=== PATIENT | female | born 1995 | race American Indian/Alaskan Native ===

== ENCOUNTER 2018-06-01 17:10 | Outpatient (CLI) | payer OTHER ==
[2018-06-01 19:12] LABS: Bacteria,Urine 2+ /HPF (Negative); Bilirubin,Urine NEG (Negative); Blood,Urine NEG (Negative); Color,Urine Amber (Yellow); Hyaline Casts,Urine 3 /LPF; Mucus,Urine 1+ /HPF
[2018-06-01] MEDS ORDERED: LACTATED RINGERS 1,000 ML IV ONE (19:23)
[2018-06-01] MEDS ORDERED: LACTATED RINGERS 1,000 ML ONE (19:24)
[2018-06-01] MEDS ORDERED: ANCEF/NS 1 GM/50 ML 1 GM/50 ML BAG IV ONE (22:00)
[2018-06-01] MEDS ORDERED: ceFAZolin 1 GM in NACL 0.9% 100 ML IV ONE (22:00)
[2018-06-01 23:14] LABS: Amphetamine Screen,Urine PRESUMPTIVE NEGATIVE; Benzodiazepines Screen,Urine PRESUMPTIVE NEGATIVE; Cannabinoid Screen,Urine PRESUMPTIVE NEGATIVE; Cocaine Screen,Urine PRESUMPTIVE NEGATIVE; Methadone Screen,Urine PRESUMPTIVE NEGATIVE; Opiate Screen,Urine PRESUMPTIVE NEGATIVE
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
[2018-06-01 23:28] VITALS: BP 109/66
== END 2018-06-02 01:36 | disposition home or self-care (01) ==
LOC: TRG 17:10
PROVIDERS: ATTEND Obstetrics & Gynecology
DX: O47.03 False labor before 37 completed weeks of gestation, third trimester (principal); Z3A.34 34 weeks gestation of pregnancy; Z87.891 Personal history of nicotine dependence
CPT/HCPCS: 59025; 76816; 76819; 80307; 81001; 85460; 96360; 96365; J0690; J7120

== ENCOUNTER 2018-07-05 18:40 | Inpatient (IN) | payer OTHER ==
[2018-07-05] MEDS ORDERED: BRETHINE SUB-Q PRN (20:43)
[2018-07-05] MEDS ORDERED: MINERAL OIL PO PRN (20:43)
[2018-07-05] MEDS ORDERED: XYLOCAINE 2% INFILTRATI ONE (20:43)
[2018-07-05] MEDS ORDERED: BRETHINE IVP PRN (20:43)
[2018-07-05] MEDS ORDERED: AMPICILLIN/NS 2 GM/100 ML 2 GM/100 ML BAG IV ONE (20:43)
[2018-07-05] MEDS ORDERED: SUBLIMAZE IV PRN (20:43)
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
[2018-07-05] MEDS ORDERED: PITOCin/NS 20 UNIT/1000ML DRIP 20 UNITS/1,000 ML BAG IV SCH (21:00)
[2018-07-05] MEDS ORDERED: PITOCin/NS 30 UNIT/500ML 30 UNITS/500 ML BAG IV SCH (21:00)
[2018-07-05] MEDS ORDERED: LACTATED RINGERS 1,000 ML IV SCH (21:00)
[2018-07-05 21:30] LABS: Basophils # (Auto) 0.1 K/mm3 (0.0-0.1); Basophils % (Auto) 0.9 % (0.0-1.8); Hematocrit 29.3 % (30.3-42.9); Hemoglobin 8.8 gm/dl (10.1-14.3); Lymphocytes # (Auto) 3.5 K/mm3 (1.2-5.4); Lymphocytes % (Auto) 23.6 % (13.4-35.0); Mean Corpuscular HGB Conc 30 % (30-34); Mean Corpuscular Volume 73 fl (79-97); Monocytes # (Auto) 0.8 K/mm3 (0.0-0.8); Monocytes % (Auto) 5.8 % (0.0-7.3); Platelet Count 315 K/mm3 (140-440); Red Blood Count 4.04 M/mm3 (3.65-5.03); Red Cell Distribution Width 17.5 % (13.2-15.2)
[2018-07-05 21:45] LABS: Amphetamine Screen,Urine PRESUMPTIVE NEGATIVE; Benzodiazepines Screen,Urine PRESUMPTIVE NEGATIVE; Cannabinoid Screen,Urine PRESUMPTIVE NEGATIVE; Cocaine Screen,Urine PRESUMPTIVE NEGATIVE; Methadone Screen,Urine PRESUMPTIVE NEGATIVE; Opiate Screen,Urine PRESUMPTIVE NEGATIVE
[2018-07-05 22:04] LABS: Hepatitis C Virus Antibody Non-Reactive (NonReactive)
[2018-07-05] MEDS ORDERED: AMBIEN PO PRN (22:12)
[2018-07-06] MEDS: AMPICILLIN/NS 1 GM/50 ML 1 GM/50 ML BAG IV SCH ×3 (01:14→10:20)
[2018-07-06] MEDS ORDERED: NARCAN 2 MG/2 ML IV PRN (07:49)
--- NOTE | 2018-07-06 07:51 | Anesthesia Consultation ---
Anesthesia Consult and Med Hx - Airway Anesthetic Teeth Evaluation: Good ROM Head & Neck: Adequate Mental/Hyoid Distance: Adequate Mallampati Class: Class I Intubation Access Assessment: Good - Pulmonary Exam CTA: Yes - Cardiac Exam Cardiac Exam: RRR - Pre-Operative Health Status ASA Pre-Surgery Classification: ASA2 Proposed Anesthetic Plan: Epidural - Pulmonary Hx Smoking: No Hx Asthma: No - Cardiovascular System Hx Hypertension: No - Central Nervous System Hx Seizures: No Hx Psychiatric Problems: No - Endocrine Hx Renal Disease: No Hx Hypothyroidism: No Hx Hyperthyroidism: No - Hematic Hx Anemia: Yes Hx Sickle Cell Disease: No - Other Systems Hx Alcohol Use: No
--- NOTE | 2018-07-06 07:51 | Anesthesia Day of Surgery ---
Anesthesia Day of Surgery - Day of Surgery Patient Examined: Yes Patient H&P Reviewed: Yes Patient is NPO: Yes Beta Blockers: No Cardiac Clearance: No Pulmonary Clearance: No Gavin's Test: N/A
[2018-07-06] MEDS ORDERED: MARCAINE 0.25% INFILTRATI ONE (07:55)
[2018-07-06] MEDS ORDERED: LIDOCAINE 1.5%/EPI 1:200,000 INFILTRATI ONE (07:55)
[2018-07-06] MEDS ORDERED: fentaNYL-BUPIV 2 MCG/ML-0.125% 200 MCG/100 ML BAG EPIDURAL SCH (08:00)
--- NOTE | 2018-07-06 08:34 | Event Note ---
Date: 07/06/18 O: VE /-1, Ellis, lt meconium, CAT I tracing, UC's q 3 min. Pit at 6mu A: Pitocin augmentation of labor at 39 weeks P; Expect
[2018-07-06] MEDS ORDERED: XYLOCAINE 2%/ EPI 1:200,000 INFILTRATI ONE (09:32)
[2018-07-06] MEDS ORDERED: LANSINOH TP PRN (12:05)
[2018-07-06] MEDS ORDERED: ZOFRAN IV PRN (12:05)
[2018-07-06] MEDS ORDERED: MILK OF MAGNESIA PO PRN (12:05)
[2018-07-06] MEDS ORDERED: PHENERGAN PR PRN (12:05)
[2018-07-06] MEDS ORDERED: PHENERGAN PO PRN (12:05)
[2018-07-06] MEDS ORDERED: DULCOLAX PR PRN (12:05)
[2018-07-06] MEDS ORDERED: TUCKS PAD TP PRN (12:05)
[2018-07-06] MEDS ORDERED: BENADRYL PO PRN (12:05)
[2018-07-06] MEDS ORDERED: TYLENOL PO PRN (12:05)
--- NOTE | 2018-07-06 12:18 | Procedure Note ---
OB Delivery Note - Delivery Date of Delivery: 07/06/18 (1134) Surgeon: CARMELO MARIE (YOANDY) Deckhand Oyster Dredge: ISAIAS VAZQUEZ (YOANDY) Estimated blood loss: 300cc - Vaginal Delivery presentation: vertex Delivery position: OA Intrapartum events: meconium (light) Delivery augmentation: pitocin Delivery monitor: external FHT, external uterine Route of delivery: (1134) Delivery placenta: spontaneous (1140) Delivery cord: 3 umbilical vessels Episiotomy: none Delivery laceration: 2nd degree, vaginal side wall (left) Delivery repair: vicryl (3.0) Anesthesia: epidural Delivery comments: Arrived to room to find pt complete and requesting to push. Delivered viable male without difficulty. Shoulders delivered easily. Apgars 8/9. placed on maternal chest, cord clamped by CNM and handed off to waiting NICU team. Placenta delivered spontaneously, oh, discarded per hospital policy. Second degree laceration on left vaginal wall, repaired. Mother and baby bonding well. - A at 1 minute: 8 at 5 minutes: 9 Infant Gender: Male (3392 gms (7lbs, 7oz))
[2018-07-06] MEDS ORDERED: SODIUM CHLORIDE FLUSH SYRINGE 10 ML IV SCH (13:00)
[2018-07-06] MEDS: NORCO 5/325 PO PRN ×2 (13:17→20:15)
--- NOTE | 2018-07-06 19:41 | Event Note ---
S-Chart reviewed. No care labs reviewed. O-H/H 8.01/24 A PPD#1 Anemia of chronic disease, iron deficiency P- Start iron supplements and discharge home on ferrous sulfate.
[2018-07-06] MEDS ORDERED: FEOSOL PO ONE (22:00)
[2018-07-06] MEDS: IBUPROFEN PO SCH (23:04)
--- NOTE | 2018-07-07 09:21 | Progress Note ---
Assessment and Plan A: day 1 S/P spontaneous vaginal delivery. Anemia related to and acute blood loss. P: Supplement with iron. Anticipate discharge tomorrow. Subjective - Subjective Date of service: 07/07/18 Principal diagnosis: day 1 S/P Interval history: day 1 S/P spontaneous vaginal delivery. Doing well. . Patient reports small amount of lochia. Patient is voiding without difficulty, ambulating well, passing gas, tolerating a regular diet without nausea or vomiting. Patient denies headache, cough, shortness of breath, chest pain, abdominal pain, leg pain, or heavy vaginal bleeding. Patient reports: appetite normal, voiding normally, pain well controlled, flatus, ambulating normally, no dizzy ambulation, no nauseated [place]: doing well Objective - Vital Signs Latest vital signs: Vital Signs Temp Pulse Resp BP BP Pulse Ox 07/07/18 07:54 97.6 F 84 18 104/55 99 07/06/18 16:06 98.1 F 18 111/62 07/06/18 15:50 97 H 07/06/18 14:45 99.0 F 82 117/53 07/06/18 13:29 77 122/64 07/06/18 13:14 81 125/62 07/06/18 12:59 90 117/56 07/06/18 12:44 66 128/72 07/06/18 12:30 98.6 F 76 18 121/68 07/06/18 11:14 98 H 128/67 07/06/18 11:01 106 H 125/71 07/06/18 10:45 100 H 124/77 07/06/18 10:38 94 H 99 07/06/18 10:33 102 H 100 07/06/18 10:30 96 H 123/78 07/06/18 10:28 98 H 100 07/06/18 10:23 92 H 100 07/06/18 10:18 89 99 07/06/18 10:14 88 125/75 07/06/18 10:13 88 100 07/06/18 10:08 84 100 07/06/18 10:03 85 100 07/06/18 10:01 90 125/73 07/06/18 09:58 92 H 100 07/06/18 09:53 90 100 07/06/18 09:48 106 H 100 07/06/18 09:46 90 131/76 07/06/18 09:43 99 H 100 07/06/18 09:38 94 H 100 07/06/18 09:33 87 100 07/06/18 09:28 108 H 99 07/06/18 09:23 95 H 100 Intake and Output 07/06/18 07/07/18 07/07/18 23:59 07:59 15:59 Intake Total 480 240 Output Total 3 3 Balance 477 237 Intake: Oral 360 240 Intake, Free Water 120 Output: Urine 3 3 Void 3 3 Other: Total, Intake Amount 360 240 Total, Output Amount 2 3 # Voids Void 400 300 - Exam Breasts: Present: normal Abdomen: Present: normal appearance, soft. Absent: distention, tenderness, guarding, rigidity Uterus: Present: normal, firm, fundal height below umbilicus. Absent: bogginess, tenderness Extremities: Present: normal. Absent: tenderness, edema
[2018-07-07] MEDS: FEOSOL PO SCH ×2 (10:23→21:01)
[2018-07-07] MEDS: PRENATAL VITAMIN PO SCH (10:23)
[2018-07-07] MEDS: NORCO 5/325 PO PRN ×2 (12:03→21:01)
[2018-07-07] MEDS: IBUPROFEN PO SCH (19:47)
[2018-07-08] MEDS: IBUPROFEN PO SCH ×2 (06:11→06:12)
[2018-07-08] MEDS: NORCO 5/325 PO PRN (08:40)
[2018-07-08] MEDS: FEOSOL PO SCH (11:45)
[2018-07-08] MEDS: PRENATAL VITAMIN PO SCH (11:45)
--- NOTE | 2018-07-08 14:54 | Progress Note ---
Assessment and Plan A: day 2 S/P spontaneous vaginal delivery. Anemia due to and acute blood loss. P: Discharge patient home today. discharge instructions and warning signs discussed with patient. Advised patient to avoid intercourse, lifting and heavy housework, driving, tub baths (patient may take showers). The following Rx were called to [facility] pharmacy on [address] and patient was instructed to pick them up at hospital discharge: Vitamin, #30, 1 po daily, 5 RF; Ferrous Sulfate 325 mg, #60, 1 po BID, 1 RF. Advised patient to call [facility] tomorrow and schedule and appointment for a follow up visit in 6 weeks. Patient voiced understanding of all instructions. Subjective - Subjective Date of service: 07/08/18 Principal diagnosis: day 2 S/P Interval history: day 2 S/P spontaneous vaginal delivery. Doing well; patient desires discharge today. . Patient reports small amount of lochia. Patient is voiding without difficulty, ambulating well, passing gas, tolerating a regular diet without nausea or vomiting. Patient denies headache, cough, shortness of breath, chest pain, abdominal pain, leg pain, or heavy vaginal bleeding. Patient reports: appetite normal, voiding normally, pain well controlled, flatus, ambulating normally, no dizzy ambulation, no nauseated [place]: doing well Objective - Vital Signs Latest vital signs: Vital Signs Temp Pulse Resp BP BP Pulse Ox 07/08/18 14:42 68 18 108/62 07/08/18 07:32 98.2 F 72 16 93/48 100 07/08/18 00:00 98.0 F 87 18 103/50 07/07/18 17:02 98.7 F 83 18 113/59 98 Intake and Output 07/07/18 07/08/18 07/08/18 23:59 07:59 15:59 Intake Total 240 Balance 240 Intake: Oral 240 Other: Total, Intake Amount 240 # Voids Void 1 1 - Exam Cardiovascular: Present: Regular rate, Normal S1, Normal S2 Lungs: Present: Clear to auscultation Abdomen: Present: normal appearance, soft, normal bowel sounds. Absent: distention, tenderness, guarding, rigidity Uterus: Present: normal, firm, fundal height below umbilicus. Absent: bogginess, tenderness Extremities: Present: normal. Absent: tenderness, edema
--- NOTE | 2018-07-08 14:57 | Discharge Summary ---
Providers - Providers Date of Admission: 07/05/18 21:10 Date of discharge: 07/08/18 Attending physician: ANA CATALAN MD None Primary care physician: [employer] Hospitalization Reason for admission: active labor Delivery: Episiotomy: none Laceration: 2nd degree Other procedures: none complications: none [place] baby: male Pertinent studies: Labs Hospital course: Normal hospital course. Condition at discharge: Good Disposition: DC-01 TO HOME OR SELFCARE - Discharge Diagnoses (1) Term delivered Status: Acute (2) Anemia due to blood loss, acute Status: Acute Plan - Discharge Medications Prescriptions: Ferrous Sulfate [Feosol 325 MG tab] 325 mg PO BID 30 Days #60 tablet Ferrous Sulfate [Feosol 325 MG tab] 325 mg PO BID 30 Days #60 tablet - Provider Discharge Summary Activity: routine, no sex for 6 weeks, no heavy lifting 4 weeks, no strenuous exercise Diet: routine Instructions: routine Additional instructions: Call your doctor immediately for: * Fever > 100.5 * Heavy vaginal bleeding ( >1 pad per hour) * Severe persistent headache * Shortness of breath * Reddened, hot, painful area to leg or breast - Follow up plan Follow up: PRIMARY CAREMD [Primary Care Provider] - 6 Weeks
[2018-07-08 16:26] VITALS: BP 91/45
== END 2018-07-08 17:10 | disposition home or self-care (01) | DRG 775 ==
LOC: TRG 18:40 → LD 21:10 → OB 07-06 14:10
PROVIDERS: ADMIT Obstetrics & Gynecology; ATTEND Obstetrics & Gynecology
PROC: 0KQM0ZZ Repair Perineum Muscle, Open Approach (ICD-10-PCS; principal; 2018-07-06)
PROC: 10E0XZZ Delivery of Products of Conception, External Approach (ICD-10-PCS; 2018-07-06)
PROC: 3E0R3BZ Introduction of Anesthetic Agent into Spinal Canal, Percutaneous Approach (ICD-10-PCS; 2018-07-06)
PROC: 00HU33Z Insertion of Infusion Device into Spinal Canal, Percutaneous Approach (ICD-10-PCS; 2018-07-06)
DX: O77.0 Labor and delivery complicated by meconium in amniotic fluid (principal); O99.02 Anemia complicating childbirth; D62 Acute posthemorrhagic anemia; O70.1 Second degree perineal laceration during delivery; Z37.0 Single live birth; Z3A.39 39 weeks gestation of pregnancy; Z82.49 Family history of ischemic heart disease and other diseases of the circulatory system; Z83.3 Family history of diabetes mellitus
CPT/HCPCS: 36415; 80307; 85025; 86592; 86706; 86762; 86803; 86850; 86900; 86901; 87806; G0378; J0290; J2590; J7120

== ENCOUNTER 2019-05-06 11:23 | Emergency (ER) | payer OTHER ==
--- NOTE | 2019-05-06 12:07 | Emergency Department Report ---
Blank Doc - Documentation Documentation: 23-year-old female that presents with left axilla abscess x1 week. This initial assessment/diagnostic orders/clinical plan/treatment(s) is/are subject to change based on patient's health status, clinical progression and re- assessment by fellow clinical providers in the ED. Further treatment and workup at subsequent clinical providers discretion. Patient/guardians urged not to elope from the ED as their condition may be serious if not clinically assessed and managed. Initial orders include: 1- Patient sent to [facility] for further evaluation and treatment
[2019-05-06 12:08] VITALS: BP 127/67
== END 2019-05-06 13:58 | disposition left against medical advice (07) ==
LOC: ED 11:23
DX: R22.9 Localized swelling, mass and lump, unspecified (principal); Z53.21 Procedure and treatment not carried out due to patient leaving prior to being seen by health care provider

== ENCOUNTER 2019-05-12 09:54 | Emergency (ER) | payer OTHER ==
[2019-05-12 10:32] VITALS: BP 116/74
--- NOTE | 2019-05-12 13:37 | Emergency Department Report ---
Abscess Boil HPI - HPI Chief Complaint: Skin/Abscess/Foreign Body Stated Complaint: NODULE LT AXILLA/PAINFUL Time Seen by Provider: 05/12/19 12:00 Duration: >1 Week Location: Upper Extremity Severity: Mild History: Yes Pain, No Fever, No Purulent Drainage, No Numbness, No Foreign Body, No Previous History, No Insect Bite HPI: This is a 24-year-old female nontoxic, well nourished in appearance, no acute signs of distress presents to the ED with c/o of redness, swelling, and pain to left axilla x2 weeks. Patient denies any pus or drainage. Patient denies any fever, chills, nausea, vomiting, chest pain, shortness of breath, headache or stiff neck. Patient stated allergies to Ibuprofen. Home Medications: Home Medications Medication Instructions Recorded Confirmed Last Taken Pnv 15/Iron Fum,Ps/Folic Acid 1 tab PO DAILY 06/01/18 07/06/18 Unknown Previous Rx's Medication Instructions Recorded Last Taken Type Ferrous Sulfate [Feosol 325 MG tab] 325 mg PO BID 30 Days #60 tablet 07/06/18 Unknown Rx Ferrous Sulfate [Feosol 325 MG tab] 325 mg PO BID 30 Days #60 tablet 07/06/18 Unknown Rx Acetaminophen/Codeine [Tylenol 1 tab PO Q6H PRN #12 tab 05/12/19 Unknown Rx /Codeine # 3 tab] Sulfamethoxazole/Trimethoprim 1 each PO BID #14 tablet 05/12/19 Unknown Rx [Bactrim DS TAB] Allergies/Adverse Reactions: Allergies Allergy/AdvReac Type Severity Reaction Status Date / Time ibuprofen Allergy Nausea Verified 05/12/19 09:56 ED Review of Systems ROS: Stated complaint: NODULE LT AXILLA/PAINFUL Other details as noted in HPI Constitutional: denies: chills, fever Eyes: denies: eye pain, eye discharge, vision change ENT: denies: ear pain, throat pain Respiratory: denies: cough, shortness of breath, wheezing Cardiovascular: denies: chest pain, palpitations Endocrine: no symptoms reported Gastrointestinal: denies: abdominal pain, nausea, diarrhea Genitourinary: denies: urgency, dysuria, discharge Musculoskeletal: denies: back pain, joint swelling, arthralgia Skin: denies: rash, lesions Neurological: denies: headache, weakness, paresthesias Psychiatric: denies: anxiety, depression Hematological/Lymphatic: denies: easy bleeding, easy bruising ED Past Medical Hx - Past Medical History Previous Medical History?: No Hx Hypertension: No Hx Diabetes: No Hx Deep Vein Thrombosis: No Hx Renal Disease: No Hx Sickle Cell Disease: No Hx Seizures: No Hx Asthma: No Hx HIV: No - Surgical History Past Surgical History?: No - Social History Smoking Status: Current Every Day Smoker Substance Use Type: None - Medications Home Medications: Home Medications Medication Instructions Recorded Confirmed Last Taken Type Pnv 15/Iron Fum,Ps/Folic Acid 1 tab PO DAILY 06/01/18 07/06/18 Unknown History Ferrous Sulfate [Feosol 325 MG tab] 325 mg PO BID 30 Days #60 tablet 07/06/18 Unknown Rx Ferrous Sulfate [Feosol 325 MG tab] 325 mg PO BID 30 Days #60 tablet 07/06/18 Unknown Rx Acetaminophen/Codeine [Tylenol 1 tab PO Q6H PRN #12 tab 05/12/19 Unknown Rx /Codeine # 3 tab] Sulfamethoxazole/Trimethoprim 1 each PO BID #14 tablet 05/12/19 Unknown Rx [Bactrim DS TAB] ED Abscess Boil Physical Exam - Exam General: Vital signs noted. No distress. Alert and acting appropriately. Size: 3 cm Exam: Yes Tenderness, Yes Fluctuance, Yes Normal Neurologic Exam, Yes Normal Circulation, No Surrounding Cellulites/Erythema, No Lymphangitis, No Crepitation, No Heart Murmur I & D Note - I & D Note I & D Note: Under sterile field, I used Betadine to cleanse the area. I then used 2% lidocaine plain with 25-gauge 5/8 needle to inject area for anesthetic purposes. Total volume injected 3 mL. I then used an 11 blade to make a 1 cm incision. About 2 mL's of purulent drainage has been noted. I then used a hemostat to break the abscess formation. I then used sterile 0.9% normal saline flush to flush the wound with total volume of 40 mL used. I then put a 1/4 iodoform packing to the incision. A sterile 4 x 4 with tape has been applied as dressing. Bleeding is under control. Patient tolerated the procedure well with no signs of distress noted. ED Course Vital Signs 05/12/19 10:20 Temperature 98.8 F Pulse Rate 88 Respiratory 18 Rate Blood Pressure 116/74 [Right] O2 Sat by Pulse 100 Oximetry - Reevaluation(s) Reevaluation #1: 05/12/19 13:35 Patient is speaking in full sentences with no signs of distress noted. Critical care attestation.: If time is entered above; I have spent that time in minutes in the direct care of this critically ill patient, excluding procedure time. ED Medical Decision Making - Medical Decision Making This is a 24-year-old female that presents with left axillary abscess. Patient is stable and was examined by me. This is incision and drainage and has been performed and patient tolerated well. A sterile dressing has been applied. Patient was educated on proper wound care. Patient is discharged with Bactrim and Tylenol with codeine and was instructed not to operate any machinery while taking Tylenol with codeine due to drowsiness. Patient was instructed to return in 2 days for packing removal. Patient was instructed to refer to Follow-up with a primary care doctor in 3-5 days or if symptoms worsen and continue return to emergency room as soon as possible. At time of discharge, the patient does not seem toxic or ill in appearance. No acute signs of distress noted. Patient agrees to discharge treatment plan of care. No further questions noted by the patient. ED Disposition Clinical Impression: Encounter for incision and drainage procedure, Abscess of left axilla Disposition: DC-01 TO HOME OR SELFCARE Is pt being admited?: No Does the pt Need Aspirin: No Condition: Stable Instructions: Abscess (ED), Abscess Incision and Drainage (ED), Acetaminophen/Codeine (By mouth) Additional Instructions: Follow-up with a primary care doctor in 3-5 days or if symptoms worsen and continue return to emergency room as soon as possible. Do not operate any machinery while taking Tylenol with codeine as this may cause drowsiness. Return in 2 days for packing removal. Prescriptions: Sulfamethoxazole/Trimethoprim [Bactrim DS TAB] 1 each PO BID #14 tablet Acetaminophen/Codeine [Tylenol /Codeine # 3 tab] 1 tab PO Q6H PRN #12 tab PRN Reason: pain Referrals: PRIMARY MD CARMELINA [Primary Care Provider] - 3-5 Days TERENCE BEVERLY MD [Staff Physician] - 3-5 Days [facility] [Outside] - 3-5 Days Forms: Work/School Release Form(ED)
[2019-05-12] MEDS ORDERED: HYDROcodone/ACETAMINOPHEN 10-325MG TAB PO ONE (15:25)
== END 2019-05-12 15:33 | disposition home or self-care (01) ==
LOC: ED 09:54
DX: L02.412 Cutaneous abscess of left axilla (principal); F17.200 Nicotine dependence, unspecified, uncomplicated; Z79.899 Other long term (current) drug therapy; Z88.8 Allergy status to other drugs, medicaments and biological substances

== ENCOUNTER 2020-05-24 20:05 | Emergency (ER) | payer SELFPAY ==
[2020-05-24 20:20] VITALS: BP 130/73
--- NOTE | 2020-05-24 21:00 | Event Note ---
ED Screening Note Date of service: 05/24/20 Time: 20:55 ED Screening Note: 25-year-old -[place] female presents to the emergency room for 3-day history of pelvic cramping and noticed blood in her urine 2 days ago. She reports her last menstrual period was 03/11/2020. She is 3 para 2. She reports she has not gone through any pads but just spotting on the tissue. Patient denies any fever chills no vomiting just nausea.Patient states that she has not followed up with care as she does not have insurance. This initial assessment/diagnostic orders/clinical plan/treatment(s) is/are subject to change based on patients health status, clinical progression and re- assessment by fellow clinical providers in the ED. Further treatment and workup at subsequent clinical providers discretion. Patient/guardian urged not to elope from the ED as their condition may be serious if not clinically assessed and managed. Initial orders include:
[2020-05-24 21:52] LABS: Basophils # (Auto) 0.1 K/mm3 (0.0-0.1); Basophils % (Auto) 0.4 % (0.0-1.8); Eosinophils % (Auto) 0.1 % (0.0-4.3); Lymphocytes # (Auto) 2.6 K/mm3 (1.2-5.4); Lymphocytes % (Auto) 22.2 % (13.4-35.0); Mean Corpuscular HGB Conc 30 % (30-34); Mean Corpuscular Volume 71 fl (79-97); Monocytes # (Auto) 0.8 K/mm3 (0.0-0.8); Monocytes % (Auto) 6.5 % (0.0-7.3); Platelet Count 267 K/mm3 (140-440); Red Blood Count 4.35 M/mm3 (3.65-5.03)
[2020-05-24 21:57] LABS: Hematocrit 30.9 % (30.3-42.9); Hemoglobin 9.2 gm/dl (10.1-14.3); Red Cell Distribution Width 21.5 % (13.2-15.2)
[2020-05-24 22:01] LABS: Alanine Aminotransferase 7 units/L (7-56); Albumin 4.3 g/dL (3.9-5); Blood Urea Nitrogen 8 mg/dL (7-17); Calcium 9.5 mg/dL (8.4-10.2); Hemolysis Index 4
[2020-05-24 22:02] LABS: BUN/Creatinine Ratio 20
== END 2020-05-24 21:00 | disposition left against medical advice (07) ==
LOC: ED 20:05
DX: R10.9 Unspecified abdominal pain (principal); Z53.21 Procedure and treatment not carried out due to patient leaving prior to being seen by health care provider
CPT/HCPCS: 36415; 80053; 84702; 85025

== ENCOUNTER 2020-12-16 16:08 | Outpatient (CLI) | payer OTHER ==
[2020-12-16 16:52] VITALS: BP 122/73
== END 2020-12-16 17:48 | disposition home or self-care (01) ==
LOC: TRG 16:08 → APU 16:14 → TRG 17:48
PROVIDERS: ATTEND Obstetrics & Gynecology
DX: O36.8130 Decreased fetal movements, third trimester, not applicable or unspecified (principal); Z3A.40 40 weeks gestation of pregnancy
CPT/HCPCS: 59025

== ENCOUNTER 2020-12-20 00:59 | Inpatient (IN) | payer OTHER ==
[2020-12-20 01:50] LABS: Bilirubin,Urine NEG (Negative); Blood,Urine NEG (Negative); Color,Urine Straw (Yellow); Protein,Urine <15 mg/dL mg/dL (Negative); Urobilinogen,Urine < 2.0 mg/dL (<2.0)
[2020-12-20] MEDS ORDERED: LACTATED RINGERS 1,000 ML IV ONE (01:55)
[2020-12-20 01:56] LABS: Amphetamine Screen,Urine Negative; Benzodiazepines Screen,Urine Negative; Cannabinoid Screen,Urine Negative; Cocaine Screen,Urine Negative; Methadone Screen,Urine Negative; Opiate Screen,Urine Negative
[2020-12-20] MEDS ORDERED: ACETAMINOPHEN 325 MG TAB PO PRN ×2 (04:42→18:45)
[2020-12-20] MEDS ORDERED: ePHEDrine SULFATE 50 MG/1 ML INJ IV PRN ×2 (04:42→08:30)
[2020-12-20] MEDS ORDERED: fentaNYL 100 MCG/2 ML INJ IV PRN (04:42)
[2020-12-20] MEDS ORDERED: OXYTOCIN 10 UNIT/1 ML INJ IM PRN (04:42)
[2020-12-20] MEDS ORDERED: LIDOCAINE (2%) 20 MG/1 ML VIAL 20 ML MDV INFILTRATI ONE (04:42)
[2020-12-20] MEDS ORDERED: METHYLERGONOVINE MALEATE 0.2 MG/ML VIAL IM PRN (04:42)
[2020-12-20] MEDS ORDERED: AMPICILLIN/NS 2 GM/100 ML 2 GM/100 ML BAG IV ONE (04:42)
[2020-12-20] MEDS ORDERED: MINERAL OIL 30 ML ORAL LIQD PO PRN (04:42)
[2020-12-20] MEDS ORDERED: TERBUTALINE 1 MG/1 ML INJ SUB-Q PRN (04:42)
[2020-12-20] MEDS ORDERED: ONDANSETRON 4 MG/2 ML INJ IV PRN ×2 (04:42→18:45)
[2020-12-20] MEDS ORDERED: miSOPROStol 200 MCG TAB PR PRN (04:42)
[2020-12-20] MEDS ORDERED: BUTORPHANOL 2 MG/1 ML INJ IV PRN (04:42)
[2020-12-20] MEDS ORDERED: OXYTOCIN DRIP 30 UNITS/500 ML BAG IV SCH ×3 (05:00→19:00)
[2020-12-20] MEDS: LACTATED RINGERS 1,000 ML IV SCH ×3 (05:47→09:39)
[2020-12-20 06:12] LABS: Hemoglobin 12.2 gm/dl (10.1-14.3); Mean Corpuscular HGB Conc 33 % (30-34); Mean Corpuscular Volume 87 fl (79-97); Platelet Count 241 K/mm3 (140-440); Red Blood Count 4.26 M/mm3 (3.65-5.03)
--- NOTE | 2020-12-20 06:58 | Ultrasound Report ---
ULTRASOUND OBSTETRIC LIMITED ULTRASOUND BIOPHYSICAL PROFILE INDICATION / CLINICAL INFORMATION: Evaluate well-being. COMPARISON: None available. FINDINGS: BREATHING MOVEMENT = 2 GROSS BODY MOVEMENT = 2 TONE = 2 QUALITATIVE AMNIOTIC FLUID VOLUME = 2 TOTAL BIOPHYSICAL SCORE = 8/8 AMNIOTIC FLUID INDEX (cm) = 7.8 PRESENTATION: Cephalic. HEART RATE (beats per minute): 166 ADDITIONAL FINDINGS: Estimated gestational age based on measurements is 38 weeks, 0 days. Estim ated weight is 3217 g. IMPRESSION: 1. Biophysical Score = 8/8 2. No significant sonographic abnormality. Signer Name: Ramses Westbrook MD Signed: 12/20/2020 6:53 AM Workstation Name: [id number]
--- NOTE | 2020-12-20 08:28 | Anesthesia Consultation ---
Anesthesia Consult and Med Hx Date of service: 12/20/20 - Airway Anesthetic Teeth Evaluation: Good ROM Head & Neck: Adequate Mental/Hyoid Distance: Adequate Mallampati Class: Class II Intubation Access Assessment: Good - Pulmonary Exam CTA: Yes - Cardiac Exam Cardiac Exam: RRR - Pre-Operative Health Status ASA Pre-Surgery Classification: ASA2 Proposed Anesthetic Plan: Epidural - Pulmonary Hx Smoking: Yes (1/2 PPD X 11 YRS) Hx Asthma: No Hx Respiratory Symptoms: No SOB: No COPD: Yes Home Oxygen Therapy: No Hx Pneumonia: No Hx Sleep Apnea: No - Cardiovascular System Hx Hypertension: No Hx Coronary Artery Disease: No Hx Heart Attack/AMI: No Hx Angina: No Hx Percutaneous Transluminal Coronary Angioplasty (PTCA): No Hx Cardia Arrhythmia: No Hx Pacemaker: No Hx Internal Defibrillator: No Hx Valvular Heart Disease: No Hx Heart Murmur: No Hx Peripheral Vascular Disease: No - Central Nervous System Hx Neuromuscular Disorder: No Hx Seizures: No CVA: No Hx Back Pain: Yes Hx Psychiatric Problems: No - Gastrointestinal Hx Ulcer: No Hx Gastroesophageal Reflux Disease: Yes - Endocrine Hx Renal Disease: No Hx End Stage Renal Disease: No Hx Cirrhosis: No Hx Liver Disease: No Hx Insulin Dependent Diabetes: No Hx Non-Insulin Dependent Diabetes: No Hx Thyroid Disease: No Hx Hypothyroidism: No Hx Hyperthyroidism: No - Hematic Hx Anemia: Yes (on meds) Hx Sickle Cell Disease: No - Other Systems Hx Alcohol Use: Yes (not since ) Hx Substance Use: No Hx Cancer: No Hx Obesity: No
[2020-12-20] MEDS ORDERED: NALOXONE 2 MG/2 ML INJ IV PRN (08:30)
[2020-12-20] MEDS: fentaNYL-BUPIV 2 MCG/ML-0.125% 200 MCG/100 ML BAG EPIDURAL SCH ×2 (09:45→15:41)
--- NOTE | 2020-12-20 10:08 | History and Physical Report ---
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 Patient denies leakage of fluid or vaginal bleeding. Patient reports active fetus. Patient denies PIH symptoms. Patient does report history of vacuum extraction with her first delivery. Patient reports babies are born at 67 pounds and reports that this baby feels smaller than her previous largest baby. No records available for review. 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 History: gonorrhea, herpes, trichomonas Family/Genetic History: diabetes, other (asthma) Social history: smoking, alcohol abuse - Obstetrical History Expected Date of Delivery: 12/16/20 Actual Gestation: 40 Week(s) 4 Day(s) : 5 Para: 2 Hx # Term Pregnancies: 2 Spontaneous Abortions: 2 Number of Living Children: 2 Medications and Allergies Allergies Allergy/AdvReac Type Severity Reaction Status Date / Time No Known Allergies Allergy Verified 12/16/20 17:10 Active Meds: Active Medications Acetaminophen (Acetaminophen 325 Mg Tab) 650 mg PO Q4H PRN PRN Reason: Pain, Mild (1-3) Butorphanol Tartrate (Butorphanol 2 Mg/1 Ml Inj) 1 mg IV Q2H PRN PRN Reason: Pain, Moderate(4-6) LABOR PAIN Last Admin: 12/20/20 07:51 Dose: 1 mg Documented by: Ephedrine Sulfate (Ephedrine Sulfate 50 Mg/1 Ml Inj) 10 mg IV Q2M PRN PRN Reason: Hypotension Fentanyl (Fentanyl 100 Mcg/2 Ml Inj) 100 mcg IV Q2H PRN PRN Reason: Pain,Severe (7-10) LABOR PAIN Lactated Ringer's (Lactated Ringers) 1,000 mls @ 125 mls/hr IV DIRECT KASSI Last Admin: 12/20/20 09:39 Dose: 125 mls/hr Documented by: Oxytocin/Sodium Chloride (Pitocin/Ns 30 Unit/500ml) 30 units in 500 mls @ 40 mls/hr IV TITR KASSI; Protocol Fentanyl/Bupivacaine/Sodium Chlor (Fentanyl-Bupiv 2 Mcg/Ml-0.125%) 200 mcg in 100 mls @ 12 mls/hr EPIDURAL TITR KASSI; Protocol Last Admin: 12/20/20 09:45 Dose: 12 mls/hr Documented by: Methylergonovine Maleate (Methylergonovine Maleate 0.2 Mg/Ml Vial) 0.2 mg IM ONCE PRN PRN Reason: Uterine Bleeding Mineral Oil (Mineral Oil 30 Ml Oral Liqd) 30 ml PO QHS PRN PRN Reason: Constipation Misoprostol (Misoprostol 200 Mcg Tab) 800 mcg ND ONCE PRN PRN Reason: Uterine Bleeding Naloxone HCl (Naloxone 2 Mg/2 Ml Inj) 0.2 mg IV Q5M PRN PRN Reason: Respiratory sedation Ondansetron HCl (Ondansetron 4 Mg/2 Ml Inj) 4 mg IV Q8H PRN PRN Reason: Nausea And Vomiting Oxytocin (Oxytocin 10 Unit/1 Ml Inj) 10 unit IM ONCE PRN PRN Reason: Uterine Bleeding Terbutaline Sulfate (Terbutaline 1 Mg/1 Ml Inj) 0.25 mg SUB-Q ONCE PRN PRN Reason: Hyperstimulation/Hypertonicity Review of Systems All systems: negative (expect HPI) - Vital Signs Vital signs: Vital Signs Pulse BP 83 134/77 12/20/20 01:15 12/20/20 01:15 Temp Pulse Resp BP Pulse Ox 98.7 F 85 22 115/72 98 12/20/20 07:36 12/20/20 10:03 12/20/20 07:51 12/20/20 09:57 12/20/20 10:03 - Physical Exam Abdomen: Positive: normal appearance, normal bowel sounds Uterus: Positive: enlarged - Obstetrical FHR: category 1 Uterine Contraction Monitor Mode: External Cervical Dilatation: 5 Uterine Contraction Pattern: Regular Results Result Diagrams: 12/20/20 02:10 Abnormal lab results 12/20/20 Range/Units 02:10 RDW 17.0 H (13.2-15.2) % All other labs normal. Assessment and Plan - Patient Problems (1) Active labor at term Current Visit: Yes Status: Acute Plan to address problem: Patient is a walk-in patient with reported care at outside facility presenting in early now active labor. --Obtain work-up. Status post ultrasound with BPP showing normal BPP with full-term gestation, cephalic. --Pitocin per protocol for augmentation of labor --Epidural for pain management --Attempt to obtain records --Anticipate
--- NOTE | 2020-12-20 10:28 | Progress Note ---
Labor Epidural - Labor Epidural Start Time: 08:52 Stop Time: :08 Performed by:: MARYBETH OLEARY Procedure: Patient is requesting a laboring epidural for laboring pain. Patient IDed, H&P reviewed, all questions and concerns were answered, and consent was signed. Timeout was performed at bedside. Patient in sitting position. Sterile prep and drape was performed. [3] ml of 1% lidocaine skin wheal at L[3]- L [4]. 18- gauge The TechMap epidural needle was advanced to loss of resistance with saline technique 4cm. Negative CSF negative blood. Epidural catheter advanced to [10] centimeters. [NEGATIVE] Aspiration [NEGATIVE] test dose. Sterile dressing applied. Patient tolerated procedure.
[2020-12-20] MEDS: AMPICILLIN/NS 1 GM/50 ML 1 GM/50 ML BAG IV SCH ×2 (11:03→15:46)
[2020-12-20 12:02] LABS: Hepatitis C Virus Antibody Non-Reactive (NonReactive)
[2020-12-20] MEDS ORDERED: BUPIVACAINE/PF (0.25%) 2.5 MG/ML 10 ML VIAL INFILTRATI ONE (17:50)
[2020-12-20] MEDS ORDERED: PROMETHAZINE 25 MG TAB PO PRN (18:45)
[2020-12-20] MEDS ORDERED: MAGNESIUM HYDROXIDE (MOM) ORAL LIQD UDC PO PRN (18:45)
[2020-12-20] MEDS ORDERED: LANOLIN/ZINC/DIMETHICONE (LANSINOH) 7 GM TP PRN (18:45)
[2020-12-20] MEDS ORDERED: PROMETHAZINE 25 MG RECT SUPP PR PRN (18:45)
[2020-12-20] MEDS ORDERED: WITCH HAZEL/ GLYCERIN PAD TP PRN (18:45)
[2020-12-20] MEDS ORDERED: diphenhydrAMINE 25 MG CAP PO PRN (18:45)
--- NOTE | 2020-12-20 18:49 | Procedure Note ---
OB Delivery Note - Delivery Date of Delivery: 12/20/20 Surgeon: PO PARKINSON JR Estimated blood loss: 100cc - Vaginal Delivery presentation: vertex Intrapartum events: none Delivery induction: AROM Delivery augmentation: rupture of membranes, pitocin Delivery monitor: external FHT, external uterine Route of delivery: Delivery placenta: spontaneous Delivery cord: nuchal cord (body cord x 1) Episiotomy: none Delivery laceration: 1st degree Delivery repair: vicryl Anesthesia: none Delivery comments: s/p vaginal delivery of male infant at 1835. 7#15oz. 19 inches. 7/9 APGARS. Fundus firm. 1st degree perineal laceration repaired with 2-0 vicryl. Body cord x 1. EBL 100cc.
[2020-12-20] MEDS: oxyCODONE /ACETAMINOPHEN 5-325MG TAB PO PRN (22:23)
[2020-12-20] MEDS: IBUPROFEN 600 MG TAB PO SCH (23:53)
[2020-12-21] MEDS: IBUPROFEN 600 MG TAB PO SCH ×3 (01:39→20:07)
--- NOTE | 2020-12-21 09:24 | Progress Note ---
Assessment and Plan A: S/P P: Continue routine pp care Awaiting H&H D/C home tomm if stable Subjective - Subjective Date of service: 12/21/20 Principal diagnosis: s/p Patient reports: appetite normal, voiding normally, pain well controlled, ambulating normally : doing well, nursing well Objective - Vital Signs Latest vital signs: Vital Signs Temp Pulse Resp BP Pulse Ox 12/21/20 07:27 18 12/21/20 06:27 18 12/21/20 05:39 97.5 F L 79 14 125/79 100 12/21/20 02:01 97.8 F 77 16 120/71 100 12/21/20 01:39 18 12/21/20 00:53 18 12/20/20 23:53 18 12/20/20 23:23 18 12/20/20 22:23 18 12/20/20 21:44 98.8 F 91 H 18 112/71 100 12/20/20 21:04 77 86 12/20/20 21:00 78 87 12/20/20 20:46 89 114/71 12/20/20 20:44 100 H 98 12/20/20 20:39 91 H 100 12/20/20 20:34 82 100 12/20/20 20:31 82 147/73 12/20/20 20:29 99 H 99 12/20/20 20:24 88 100 12/20/20 20:19 69 100 12/20/20 20:16 94 H 141/85 86 12/20/20 20:14 75 100 12/20/20 20:09 72 100 12/20/20 20:06 79 90 12/20/20 20:04 74 98 12/20/20 20:01 101 H 143/74 93 12/20/20 19:59 97 H 100 12/20/20 19:54 77 100 12/20/20 19:49 88 99 12/20/20 19:46 74 138/72 12/20/20 19:44 78 99 12/20/20 19:39 82 96 12/20/20 19:36 80 85 12/20/20 19:34 71 100 12/20/20 19:31 83 138/68 12/20/20 19:29 80 100 12/20/20 19:26 98 H 94 12/20/20 19:24 91 H 98 12/20/20 19:19 100 H 80 L 12/20/20 19:17 89 93 12/20/20 19:16 93 H 136/88 12/20/20 19:14 85 100 12/20/20 19:09 92 H 99 12/20/20 19:04 92 H 100 12/20/20 19:01 90 154/61 81 L 12/20/20 18:59 85 100 12/20/20 18:57 94 H 148/91 12/20/20 18:54 96 H 99 12/20/20 18:53 84 89 12/20/20 18:49 93 H 100 12/20/20 18:44 87 100 12/20/20 18:39 97 H 100 12/20/20 18:34 108 H 100 12/20/20 18:31 105 H 79 L 12/20/20 18:29 130 H 99 12/20/20 18:24 106 H 100 12/20/20 18:19 100 H 100 12/20/20 18:15 98.3 F 12/20/20 18:14 85 99 12/20/20 18:09 90 98 12/20/20 18:04 92 H 99 12/20/20 17:59 95 H 130/77 99 12/20/20 17:54 91 H 100 12/20/20 17:49 81 98 12/20/20 17:45 98.0 F 12/20/20 17:44 86 100 12/20/20 17:39 81 100 12/20/20 17:34 75 100 12/20/20 17:29 91 H 121/80 99 12/20/20 17:23 94 H 100 12/20/20 17:18 81 100 12/20/20 17:13 78 99 12/20/20 17:08 91 H 99 12/20/20 17:03 89 100 12/20/20 16:59 90 146/88 12/20/20 16:58 79 100 12/20/20 16:53 85 99 12/20/20 16:48 86 100 12/20/20 16:43 87 100 12/20/20 16:38 88 98 12/20/20 16:33 83 99 12/20/20 16:28 83 111/59 98 12/20/20 16:23 86 97 12/20/20 16:18 83 98 12/20/20 16:13 86 99 12/20/20 16:08 82 98 12/20/20 16:03 79 97 12/20/20 16:00 98.0 F 12/20/20 15:58 75 97/58 98 12/20/20 15:53 88 98 12/20/20 15:48 82 97 12/20/20 15:43 87 98 12/20/20 15:38 72 98 12/20/20 15:33 80 98 12/20/20 15:28 83 98 12/20/20 15:27 77 116/63 12/20/20 15:23 87 99 12/20/20 15:18 87 99 12/20/20 15:13 76 97 12/20/20 15:08 76 99 12/20/20 15:03 89 99 12/20/20 14:58 77 126/91 96 12/20/20 14:53 77 99 12/20/20 14:50 84 92 12/20/20 14:48 74 99 12/20/20 14:43 79 98 12/20/20 14:38 77 99 12/20/20 14:33 86 100 12/20/20 14:28 81 124/75 99 12/20/20 14:23 76 99 12/20/20 14:18 76 100 12/20/20 14:13 82 100 12/20/20 14:08 91 H 100 12/20/20 14:03 80 100 12/20/20 13:58 79 124/78 99 12/20/20 13:53 82 100 12/20/20 13:48 80 100 12/20/20 13:43 81 99 12/20/20 13:38 84 98 12/20/20 13:33 81 98 12/20/20 13:28 80 119/76 100 12/20/20 13:23 80 99 12/20/20 13:18 86 100 12/20/20 13:13 83 100 12/20/20 13:08 91 H 100 12/20/20 13:03 80 100 12/20/20 12:58 82 100 12/20/20 12:57 76 128/78 12/20/20 12:53 82 100 12/20/20 12:48 82 100 12/20/20 12:43 78 100 12/20/20 12:38 97 H 97 12/20/20 12:33 85 98 12/20/20 12:28 84 111/73 100 12/20/20 12:23 83 98 12/20/20 12:18 86 100 12/20/20 12:13 85 99 12/20/20 12:08 86 99 12/20/20 12:03 79 100 12/20/20 11:58 73 100 12/20/20 11:57 79 114/81 12/20/20 11:53 71 100 12/20/20 11:48 78 99 12/20/20 11:43 88 99 12/20/20 11:38 76 99 12/20/20 11:33 82 98 12/20/20 11:28 82 105/67 99 12/20/20 11:23 83 99 12/20/20 11:18 84 98 12/20/20 11:13 85 98 12/20/20 11:08 84 99 12/20/20 11:03 79 100 12/20/20 10:58 83 100 12/20/20 10:57 88 103/69 12/20/20 10:53 74 100 12/20/20 10:48 98 H 99 12/20/20 10:43 88 100 12/20/20 10:38 89 99 12/20/20 10:33 79 98 12/20/20 10:28 85 108/69 99 12/20/20 10:23 82 99 12/20/20 10:18 80 97 12/20/20 10:13 84 99 12/20/20 10:08 84 100 12/20/20 10:03 85 98 12/20/20 09:58 85 99 12/20/20 09:57 82 115/72 12/20/20 09:53 91 H 99 12/20/20 09:48 87 98 12/20/20 09:43 91 H 97 12/20/20 09:38 92 H 98 12/20/20 09:33 84 99 12/20/20 09:28 86 98 12/20/20 09:27 86 122/75 12/20/20 09:25 83 119/70 12/20/20 09:23 88 118/67 99 Intake and Output 12/20/20 12/21/20 12/21/20 22:59 06:59 14:59 Intake Total 14 360 Output Total 400 700 Balance -386 -340 Intake: IV 14 PITOCin/NS 30 UNIT/500ML 14 30 units In 500 ml @ 4 mls/hr IV TITR KASSI Rx#: [id number] Oral 240 Intake, Free Water 120 Output: Urine 400 700 Void 400 700 Other: Total, Intake Amount 240 Total, Output Amount 400 700 # Voids Void 1 Estimated Blood Loss 100 - Exam Breasts: Present: normal Abdomen: Present: normal appearance, soft, normal bowel sounds Vulva: both: normal Uterus: Present: normal, firm, fundal height below umbilicus Extremities: Present: normal Incision: Present: normal, intact
[2020-12-21] MEDS: oxyCODONE /ACETAMINOPHEN 5-325MG TAB PO PRN (11:30)
--- NOTE | 2020-12-21 15:04 | Post Anesthesia Evaluation ---
- Post Anesthesia Evaluation Patient Participated: Yes Airway Patent: Yes Stable Respiratory Function: Yes Nausea/Vomiting: No Temp > 96.8F: Yes Pain Manageable: Yes Adequeate Hydration: Yes Anesthesia Complications: No Block Receding Appropriately: Yes Patient on Ventilator: No
--- NOTE | 2020-12-21 17:43 | Discharge Summary ---
Providers - Providers Date of Admission: 12/20/20 06:33 Date of discharge: 12/22/20 Attending physician: PO PARKINSON JR, MD Primary care physician: SCOURER Hospitalization Reason for admission: active labor, IUP at term Delivery: Episiotomy: none Laceration: 1st degree Incision: normal, intact Other procedures: none complications: none Discharge diagnosis: IUP at term delivered [place] baby: male Hospital course: Pt was a walk in pt and delivered via . She had no pp complications. See H&P, delivery summary, and pp notes. Condition at discharge: Stable Disposition: DC-01 TO HOME OR SELFCARE Plan - Discharge Medications Prescriptions: Ibuprofen [Motrin 600 MG tab] 600 mg PO Q6H #30 tablet - Provider Discharge Summary Activity: routine, no sex for 6 weeks, no heavy lifting 4 weeks, no strenuous exercise Diet: routine Instructions: routine Additional instructions: [] Smoking cessation referral if applicable(refer to patient education folder for contact #) [] Refer to [facility]'s [facility] Booklet Call your doctor immediately for: * Fever > 100.5 * Heavy vaginal bleeding ( >1 pad per hour) * Severe persistent headache * Shortness of breath * Reddened, hot, painful area to leg or breast * Drainage or odor from incision. * Keep incision clean and dry at all times and follow doctor's instructions regarding bathing/showering - Follow up plan Follow up: PRIMARY CARE, [Primary Care Provider] - 6 Weeks
[2020-12-22] MEDS: IBUPROFEN 600 MG TAB PO SCH (01:08)
[2020-12-22] MEDS: oxyCODONE /ACETAMINOPHEN 5-325MG TAB PO PRN (05:11)
[2020-12-22 18:17] VITALS: BP 127/51
== END 2020-12-22 15:00 | disposition home or self-care (01) | DRG 775 ==
LOC: TRG 00:59 → APU 01:00 → TRG 04:42 → LD 06:33 → OB 21:18
PROVIDERS: ADMIT Obstetrics & Gynecology; ATTEND Obstetrics & Gynecology
PROC: 10E0XZZ Delivery of Products of Conception, External Approach (ICD-10-PCS; principal; 2020-12-20)
PROC: 0HQ9XZZ Repair Perineum Skin, External Approach (ICD-10-PCS; 2020-12-20)
PROC: 10907ZC Drainage of Amniotic Fluid, Therapeutic from Products of Conception, Via Natural or Artificial Opening (ICD-10-PCS; 2020-12-20)
PROC: 3E0R3BZ Introduction of Anesthetic Agent into Spinal Canal, Percutaneous Approach (ICD-10-PCS; 2020-12-20)
PROC: 00HU33Z Insertion of Infusion Device into Spinal Canal, Percutaneous Approach (ICD-10-PCS; 2020-12-20)
DX: O69.81X0 Labor and delivery complicated by cord around neck, without compression, not applicable or unspecified (principal); Z3A.40 40 weeks gestation of pregnancy; Z37.0 Single live birth; O70.0 First degree perineal laceration during delivery; Z20.822 Contact with and (suspected) exposure to COVID-19; Z83.3 Family history of diabetes mellitus; Z83.6 Family history of other diseases of the respiratory system
CPT/HCPCS: 36415; 59025; 76816; 76819; 80307; 81001; 85027; 86592; 86706; 86762; 86803; 86850; 86900; 86901; 87086; 87806; 96360; G0378; J0290; J0595; J2590; J7120; U0003